=== PATIENT | male | born 1960 | race Hispanic/Latino ===

== ENCOUNTER → 2017-07-14 | Outpatient (CLI) | payer MEDICARE | LOC: RAH 11:26 | PROVIDERS: ATTEND Internal Medicine | DX: M47.896 Other spondylosis, lumbar region (principal); M19.90 Unspecified osteoarthritis, unspecified site | CPT/HCPCS: 72081; 72100; 73560 ==

== ENCOUNTER → 2017-10-11 | Outpatient (CLI) | payer MEDICARE | END | disposition home or self-care (01) | LOC: RAH 07:40 | PROVIDERS: ATTEND Physical Medicine & Rehabilitation | DX: M48.07 Spinal stenosis, lumbosacral region (principal); M48.062 Spinal stenosis, lumbar region with neurogenic claudication; M47.896 Other spondylosis, lumbar region | CPT/HCPCS: 72148 ==

== ENCOUNTER → 2018-07-26 | Outpatient (CLI) | payer MEDICARE | END | disposition home or self-care (01) | LOC: RAH 08:44 | PROVIDERS: ATTEND Internal Medicine | DX: M47.26 Other spondylosis with radiculopathy, lumbar region (principal); N28.1 Cyst of kidney, acquired | CPT/HCPCS: 72148 ==

== ENCOUNTER → 2018-08-15 | Outpatient (CLI) | payer MEDICARE | END | disposition home or self-care (01) | LOC: OIH 16:05 | PROVIDERS: ATTEND Internal Medicine | DX: I10 Essential (primary) hypertension (principal); M47.814 Spondylosis without myelopathy or radiculopathy, thoracic region | CPT/HCPCS: 71046 ==

== ENCOUNTER → 2018-12-26 | Outpatient (CLI) | payer MEDICARE ==
[~2018-12-26] MED LIST: ALLO300T2 PO; AMLO5TAB9 PO; MELO-106 PO
== END | disposition home or self-care (01) ==
LOC: SHCH 08:04
PROVIDERS: ATTEND Internal Medicine Cardiovascular Disease
DX: I34.0 Nonrheumatic mitral (valve) insufficiency (principal); I11.9 Hypertensive heart disease without heart failure; I20.9 Angina pectoris, unspecified
CPT/HCPCS: 93306

== ENCOUNTER 2019-02-06 05:38 | Observation (INO) | payer MEDICARE ==
[2019-02-02 09:03] LABS: BASOPHILS % (AUTO) 0.6 % (0.0-5.0); EOSINOPHILS % (AUTO) 2.2 % (0.0-8.0); LYMPHOCYTES % (AUTO) 18.7 % (21.0-51.0); MEAN CORPUSCULAR HEMOGLOBIN 30.2 pg (27.0-33.0); MEAN CORPUSCULAR HGB CONC 32.9 g/dL (32.0-36.0); MEAN CORPUSCULAR VOLUME 91.6 fL (79-99); NEUTROPHILS % (AUTO) 70.5 % (40.0-77.0); PLATELET COUNT (AUTO) 164 K/uL (130-400); RED BLOOD CELL COUNT(AUTO) 4.59 MIL/uL (4.50-6.20); WHITE BLOOD COUNT (AUTO) 6.9 K/uL (4.8-10.8)
[2019-02-02 09:07] VITALS: BP 102/66
[2019-02-02 09:10] LABS: CREATININE 1.3 mg/dL (0.5-1.5); POTASSIUM 4.3 mmol/L (3.5-5.1)
[2019-02-02 09:13] LABS: INR 0.99 (0.85-1.15); PARTIAL THROMBOPLASTIN TIME 25.7 SEC (26.3-35.5); PROTHROMBIN TIME 10.4 SEC (9.6-11.6)
[2019-02-02] MEDS: CEFAZOLIN SODIUM 1 GM VIAL IVP SCH (10:15)
[2019-02-03] MEDS: CEFAZOLIN SODIUM 1 GM VIAL IVP SCH (10:15)
[2019-02-04] MEDS: CEFAZOLIN SODIUM 1 GM VIAL IVP SCH (10:15)
[2019-02-05] MEDS: CEFAZOLIN SODIUM 1 GM VIAL IVP SCH (10:15)
[~2019-02-06] VITALS: Ht 182.9 cm; Wt 117.0 kg
[2019-02-06] VITALS (13 sets, daily range): BP systolic 91–128; BP diastolic 41–80
[~2019-02-06 05:38] MED LIST changes: -ALLO300T2 PO; -AMLO5TAB9 PO; +ASPI-555 PO; +ATOR40TA69 PO; +CLOP75TA32 PO; +CYAN-52 PO; -MELO-106 PO; +METF-444 PO; +METO25TA6 PO; +POTA-79 PO; +PYRI100T2 PO; +SACU1TAB PO
[2019-02-06] MEDS ORDERED: MIDAZOLAM HCL 1 MG/ML 2ML VIAL ONE ×3 (07:13→08:10)
[2019-02-06] MEDS ORDERED: LIDOCAINE HCL 1% MDV 50ML VIAL ONE (07:13)
[2019-02-06] MEDS ORDERED: MEPERIDINE-PF 25 MG/ML SYG ONE ×3 (07:13→08:10)
[2019-02-06] MEDS ORDERED: CEFAZOLIN SODIUM 1 GM VIAL ONE (07:13)
[2019-02-06] MEDS ORDERED: BUPIVACAINE/PF 0.25% 30ML VIAL IJ ONE (07:13)
[2019-02-06] MEDS: SODIUM CHLORIDE 0.9% 1000ML 1,000 ML IV SCH ×3 (07:58→15:31)
[2019-02-06] MEDS ORDERED: ACETAMINOPHEN-CODEINE 300/30MG TAB PO PRN (09:15)
--- NOTE | 2019-02-06 09:35 | NUR ---
POST PROCEDURE RECEIVED PT FROM TEST LEAD APPLICATION TESTING, IN SEMI ACOSTA'S POSITION, A&OX3, CALM COOPERATIVE AND DOES NOT APPEAR TO BE IN ANY DISTRESS NOR ANY NEURO DEFICITS PRESENT. PT DENIES PAIN, SOB, NAUSEA. LEFT SHOULDER DRESSING DRY, INTACT AND SECURED WITH ARM SLING. PT RESTING, COMFORTABLY, CALL LIGHT WITHIN REACH, FAMILY AT BEDSIDE.
[2019-02-06] MEDS: METFORMIN HCL 500 MG TABLET PO SCH ×2 (09:54→15:31)
--- NOTE | 2019-02-06 19:34 | NUR ---
ASSESSMENT PATIENT IS RESTING IN BED. ALERT AND ORIENTED X3. FAMILY AT BEDSIDE. NO COMPLAINTS OF PAIN AT THIS TIME. NO SIGNS OF DISTRESS. NO SHORTNESS OF BREATH. PATIENT IS IN A SEMI FOWLERS POSITION, S/P AICD PLACEMENT. SURGICAL SITE IS CLEAN, DRY AND INTACT. ARM IS IN SLING INSTRUCTED ON LIMITED ROM TO LUE AND PATIENT AGREES. CALL LIGHT, BEDSIDE TABLE, AND URINAL WITHIN REACH. NO QUESTIONS, CONCERNS, OR NEEDS, AT THIS TIME. REINFORCED TO CALL FOR ANY NEEDS.
[2019-02-06] MEDS: METOPROLOL TARTRATE 25 MG TAB PO SCH (20:36)
[2019-02-06] MEDS: VALSARTAN PO SCH (20:37)
[2019-02-06] MEDS: SACUBITRIL PO SCH (20:37)
[2019-02-06] MEDS ORDERED: POTASSIUM CHLORIDE 20 MEQ ERTAB PO SCH (21:00)
[2019-02-06] MEDS ORDERED: ATORVASTATIN CALCIUM 40 MG TABLET PO SCH (21:00)
[2019-02-06] MEDS ORDERED: ASPIRIN 81 MG EC TAB PO SCH (21:00)
--- NOTE | 2019-02-07 | NUR ---
ASSESSMENT PATIENT IS RESTING IN BED. NO COMPLAINTS OF PAIN. NO SIGNS OF DISTRESS. NO SHORTNESS OF BREATH. CALL LIGHT WITHIN REACH. NO QUESTIONS, CONCERNS, OR NEEDS AT THIS TIME.
[2019-02-07 04:00] VITALS: BP 108/65
[2019-02-07 07:22] VITALS: BP 94/64
[2019-02-07] MEDS: METFORMIN HCL 500 MG TABLET PO SCH (08:07)
[2019-02-07] MEDS: SACUBITRIL PO SCH (09:00)
[2019-02-07] MEDS: VALSARTAN PO SCH (09:00)
[2019-02-07] MEDS ORDERED: PHENAZOPYRIDINE HCL 200 MG TABLET PO SCH (09:00)
[2019-02-07] MEDS ORDERED: CLOPIDOGREL BISULFATE 75 MG TAB PO SCH (09:00)
[2019-02-07] MEDS ORDERED: CYANOCOBALAMIN (VITAMIN B-12) 1,000 MCG TABLET PO SCH (09:00)
[2019-02-07] MEDS: METOPROLOL TARTRATE 25 MG TAB PO SCH (09:05)
[2019-02-07 11:14] VITALS: BP 102/75
== END 2019-02-07 13:00 | disposition home or self-care (01) ==
LOC: DAH 05:38 → DAHIP 05:39 → DAH 05:39 → 2DH 09:43
PROVIDERS: ADMIT Internal Medicine; ATTEND Internal Medicine
DX: I25.5 Ischemic cardiomyopathy (principal); I25.10 Atherosclerotic heart disease of native coronary artery without angina pectoris; I25.2 Old myocardial infarction; I13.0 Hypertensive heart and chronic kidney disease with heart failure and stage 1 through stage 4 chronic kidney disease, or unspecified chronic kidney disease; E11.22 Type 2 diabetes mellitus with diabetic chronic kidney disease; I50.22 Chronic systolic (congestive) heart failure; N18.9 Chronic kidney disease, unspecified; D64.9 Anemia, unspecified; M19.90 Unspecified osteoarthritis, unspecified site; Z95.810 Presence of automatic (implantable) cardiac defibrillator
CPT/HCPCS: 33249; 36415; 71045; 80048; 82948; 85025; 85610; 85730; A4215; A4216; A4221; A4222; A4223 ×3; A4606; C1721; C1895 ×2; G0378 ×28; J0690; J2175 ×3; J2250 ×3; J3490 ×2; J7030; 99156; 99157